=== PATIENT | male | born 1980 | race Caucasian/White ===

== ENCOUNTER 2020-07-16 15:19 | Emergency (ER) | payer SELFPAY ==
[~2020-07-16] VITALS: Ht 177.8 cm; Wt 72.6 kg
[2020-07-16] MEDS ORDERED: SODIUM CHLORIDE 0.9% 1,000 ML IV ONE ×2 (15:45)
[2020-07-16 15:56] LABS: Basophils # (auto) 0.1 10 ^3/uL (0-0.2); Basophils % (auto) 1.2 % (0.0-2.0); Eosinophils # (auto) 0.1 10 ^3/uL (0-0.8); Eosinophils % (auto) 1.3 % (0.0-7.0); Hematocrit 40.3 % (41.0-53.0); Hemoglobin 14.1 g/dL (13.5-17.5); Lymphocytes # (auto) 2.1 10 ^3/uL (0.4-5.4); Lymphocytes % (auto) 24.2 % (10.0-50.0); Mean Corpuscular Hemoglobin 32.3 pg (28.0-32.0); Mean Corpuscular Volume 92.3 fL (80.0-100.0); Monocytes # (auto) 0.7 10 ^3/uL (0-1.3); Monocytes % (auto) 8.5 % (0.0-12.0); Neutrophils # (auto) 5.6 10 ^3/uL (1.6-8.6); Neutrophils % (auto) 64.8 % (37.0-80.0); Red Blood Cells 4.36 10^6/uL (4.5-5.90); Red Cell Distribution Width 13.1 % (11.8-14.3); White Blood Cell 8.7 10^3/uL (4.4-10.8)
[2020-07-16 16:07] LABS: Albumin 3.4 g/dL (3.4-5.0); Anion Gap 11 (5-15); Blood Urea Nitrogen 12 mg/dL (7-18); Calcium 8.7 mg/dL (8.5-10.1); Carbon Dioxide 22 mmol/L (21-32); Chloride 109 mmol/L (98-107); Glucose 93 mg/dL (74-106); Magnesium 2.2 mg/dL (1.6-2.6); Potassium 3.4 mmol/L (3.5-5.1); Sodium 142 mmol/L (136-145)
[2020-07-16 16:14] LABS: Alanine Aminotransferase 36 U/L (16-61); Alkaline Phosphatase 54 U/L (45-117); Aspartate Aminotransferase 21 U/L (15-37); BUN/Creatinine Ratio 17.6; Bilirubin, Total 0.5 mg/dL (0.2-1.0); GFR African American 167 mL/min; GFR Non-African American 138 mL/min; Total Protein 6.4 g/dL (6.4-8.2)
[2020-07-16] MEDS ORDERED: HYDROcodone-ACET 5/325MG TAB ONE (17:12)
[2020-07-16] MEDS ORDERED: POTASSIUM EFFERVESENT TAB 25 MEQ PO ONE (17:30)
[2020-07-16 17:59] VITALS: BP 121/73
[2020-07-16] MEDS ORDERED: HYDROcodone-ACET 10/325MG TAB ONE (18:14)
== END 2020-07-16 18:36 | disposition home or self-care (01) ==
LOC: ER 15:19 → EDBD 15:19 → EDUNIT# 15:19 → ER 18:30
DX: S63.094A Other dislocation of right wrist and hand, initial encounter (principal); R55 Syncope and collapse; E87.6 Hypokalemia; R41.82 Altered mental status, unspecified; F17.210 Nicotine dependence, cigarettes, uncomplicated; X58.XXXA Exposure to other specified factors, initial encounter; Y93.89 Activity, other specified; Y92.89 Other specified places as the place of occurrence of the external cause; Y99.8 Other external cause status
CPT/HCPCS: 29125; 36415; 70450; 71045; 73130; 80053; 80320; 83735; 84484; 85025; 93005; 96360

== ENCOUNTER 2022-01-07 00:22 | Emergency (ER) | payer OTHER ==
[~2022-01-07] VITALS: Ht 182.9 cm; Wt 75.0 kg
[2022-01-07] MEDS ORDERED: HYDROcodone-ACET 5/325MG TAB PO ONE (00:30)
[2022-01-07] MEDS ORDERED: TETANUS-DIPTH-ACEL PERTUSSIS 0.5ML SYR Tdap IM ONE (00:30)
[2022-01-07 02:00] VITALS: BP 108/69
[2022-01-07] MEDS ORDERED: KETOROLAC TROMETH 30 MG/ML 1ML VIAL IV ONE (02:00)
== END 2022-01-07 02:13 | disposition home or self-care (01) ==
LOC: ER 00:22
DX: S01.81XA Laceration without foreign body of other part of head, initial encounter (principal); S81.802A Unspecified open wound, left lower leg, initial encounter; F10.129 Alcohol abuse with intoxication, unspecified; Y90.9 Presence of alcohol in blood, level not specified; W34.00XA Accidental discharge from unspecified firearms or gun, initial encounter; Y93.89 Activity, other specified; Y92.89 Other specified places as the place of occurrence of the external cause; Y99.8 Other external cause status
CPT/HCPCS: 12011; 73562; 73590; 90471; 90715; 96374; 99284; J1885